=== PATIENT | female | born 1970 | race Caucasian/White ===

== ENCOUNTER 2016-05-18 08:20 | Emergency (ER) | payer MEDICARE, OTHER ==
[~2016-05-18] VITALS: Ht 167.6 cm; Wt 170.1 kg
[2016-05-18 08:45] VITALS: BP 174/86
[2016-05-18] MEDS ORDERED: OXYCODONE/APAP 10/325 TABLET. PO ONE (09:45)
--- NOTE | 2016-05-18 09:57 | PHYS DOC ---
Past Medical History Past Medical History: CVA, Diabetes-Type II, High Cholesterol, Hypertension, [place] Additional Past Medical Histor: chronic L side numbness, chronic back and knee pain Past Surgical History: Cholecystectomy, , Hysterectomy, Tonsillectomy , Tubal ligation Alcohol Use: None Drug Use: None Adult General Chief Complaint Chief Complaint: LOWER BACK PAIN OR INJURY [facility] HPI Patient is a 45 year old male presents emergency department stating that she is having right lower back pain that goes into her buttocks area. She states that she went to get up off the toilet on Monday and developed the pain. She states that she had been taken her oxycodone for the pain and discomfort although ran out of it on Monday night. Patient does states she has a history of chronic back pain. She denies any falls traumas or injury to her back. She denies any loss of bowel or bladder. She states that she normally has numbness and tingling into her leg so she is unable to tell if this is increased or not. Patient does ambulate with a cane although when I went into the room she was ambulating without the cane with a steady gait. Review of Systems Review of Systems Constitutional: Denies fever or chills [] Eyes: Denies change in visual acuity, redness, or eye pain [] HENT: Denies nasal congestion or sore throat [] Respiratory: Denies cough or shortness of breath [] Cardiovascular: No additional information not addressed in HPI [] GI: Denies abdominal pain, nausea, vomiting, bloody stools or diarrhea [] : Denies dysuria or hematuria [] Musculoskeletal: lower back pain with radiation into the right buttock. Denies joint pain [] Integument: Denies rash or skin lesions [] Neurologic: Denies headache, focal weakness or sensory changes [] Current Medications Current Medications Current Medications Medications (Trade) Dose Ordered Sig/Myrna Start Time Stop Time Status Last Admin Dose Admin Oxycodone/ Acetaminophen (Percocet 10/325) 1 tab 1X ONCE 05/18/16 09:45 05/18/16 09:46 DC 05/18/16 09:34 1 TAB Allergies Allergies Allergies Coded Allergies Type Severity Reaction Last Updated Verified No Known Drug Allergies 05/18/16 No Physical Exam Physical Exam Constitutional: Well developed, well nourished, no acute distress, non-toxic appearance. [] HENT: Normocephalic, atraumatic, bilateral external ears normal, oropharynx moist, no oral exudates, nose normal. [] Eyes: PERRLA, EOMI, conjunctiva normal, no discharge. [] Neck: Normal range of motion, no tenderness, supple, no stridor. [] Cardiovascular:Heart rate regular rhythm, no murmur [] Lungs & Thorax: Bilateral breath sounds clear to auscultation [] Skin: Warm, dry, no erythema, no rash. [] Back: Lumbar spine tenderness noted with no step-offs, no deformities and no crepitus noted Extremities: No tenderness, no cyanosis, no clubbing, ROM intact, no edema. [] Neurologic: Alert and oriented X 3, normal motor function, normal sensory function, no focal deficits noted. [] Psychologic: Affect normal, judgement normal, mood normal. [] Current Patient Data Vital Signs Vital Signs Date Time Temp Pulse Resp B/P Pulse Ox O2 Delivery O2 Flow Rate FiO2 05/18/16 08:45 97.7 90 22 174/86 94 Room Air 97.7 EKG EKG [] Radiology/Procedures Radiology/Procedures [] [facility] [address] [place], [place] [id number] IMAGING REPORT Signed PATIENT: VI JIMENES ACCOUNT: [id number] : 1970 LOCATION: ER AGE: 45 SEX: F EXAM STATUS: PRE ER ORD. PHYSICIAN: INNA CID NP REASON: spine tenderness with lower extremity numbness hx stroke PROCEDURE: LUMBAR SPINE 2-3V Lumbar spine, 3 views, 05/18/2016: History: Spine tenderness, lower extremity numbness Comparison is made to a study from 07/02/2008. The lumbar vertebral heights are well-maintained. There appear to be 6 lumbar type vertebral bodies. The lowest visible disc space will be considered to be L6-S1 for consistency with the prior report. There is a grade 1 spondylolisthesis at L6-S1, also evident on the previous study. There is underlying facet joint arthropathy and probable spondylolysis. There is severe disc space narrowing and marginal spurring at L6-S1. The other intervertebral disc spaces are well preserved. The paraspinous soft tissues are unremarkable. IMPRESSION: 1. Chronic grade 1 spondylolisthesis at the lumbosacral junction with severe associated degenerative disc disease at that level. 2. No acute lumbar spine abnormality is detected. DICTATED and SIGNED BY: MILEY DEL TORO MD DATE: 05/18/16 0952 CC: INNA CID COATING AND EMBOSSING UNIT OPERATOR; RYAN CARROLL MD ~ Course & Med Decision Making Course & Med Decision Making Pertinent Labs and Imaging studies reviewed. (See chart for details) X-rays as negative for any abnormalities. Provide patient with some oxycodone for the next few days until she can get into see her primary care physician on Monday. Recommended activity as tolerated. Signs and symptoms to return back to emergency department as been provided. Patient agrees with discharge instructions treatment regimens and follow-up recommendations. [] Dragon Disclaimer Dragon Disclaimer This electronic medical record was generated, in whole or in part, using a voice recognition dictation system. Departure Departure Impression: Primary Impression: Chronic lower back pain Disposition: HOME, SELF-CARE Condition: STABLE Referrals: RYAN CARROLL MD (PCP) Patient Instructions: Back Pain, Adult, [id number] Additional Instructions: Activity as tolerated. Medications as prescribed. Oxycodone will cause drowsiness do not take any be alert and oriented. Follow-up through primary care physician in the next 2-3 days. Return back to emergency prior signs symptoms of become worse. Scripts Oxycodone/Apap 10-325 (Percocet 10-325 Mg Tablet)1 Each Tablet1 Tab PO PRN Q6HRS PRN PAIN #8 TAB Ref 0 Prov:INNA CID NP 05/18/16 INNA CID NP May 18, 2016 09:57
[2016-05-18] MEDS ORDERED: OXYC-250 PO (10:04)
== END 2016-05-18 10:03 | disposition home or self-care (01) ==
LOC: ER 08:20
DX: G89.29 Other chronic pain (principal); M54.5 Low back pain; Z86.73 Personal history of transient ischemic attack (TIA), and cerebral infarction without residual deficits; E11.9 Type 2 diabetes mellitus without complications; I10 Essential (primary) hypertension; I25.2 Old myocardial infarction; E78.00 Pure hypercholesterolemia, unspecified
CPT/HCPCS: 72100; 99284

== ENCOUNTER 2017-05-04 14:30 | Emergency (ER) | payer MEDICARE, OTHER ==
[2017-05-04 16:35] LABS: INFLUENZA A PATIENT NEGATIVE (NEGATIVE); INFLUENZA B PATIENT NEGATIVE (NEGATIVE); OBC FLU VALID
== END 2017-05-04 17:04 | disposition home or self-care (01) ==
LOC: ER 14:30
DX: B34.9 Viral infection, unspecified (principal); E11.9 Type 2 diabetes mellitus without complications; E78.00 Pure hypercholesterolemia, unspecified; I10 Essential (primary) hypertension; Z86.73 Personal history of transient ischemic attack (TIA), and cerebral infarction without residual deficits
CPT/HCPCS: 87804; 87804-59; 99284

== ENCOUNTER 2020-03-22 12:51 | Emergency (ER) | payer MEDICARE ==
[~2020-03-22] VITALS: Ht 167.6 cm; Wt 165.0 kg
[~2020-03-22 12:51] MED LIST: OSEL75CA PO; OXYC1TAB22 PO
--- NOTE | 2020-03-22 17:46 | ED.ADGEN ---
Past Medical History Past Medical History: CVA, Diabetes-Type II, High Cholesterol, Hypertension, [place] Additional Past Medical Histor: chronic L side numbness, chronic back and knee pain Past Surgical History: Cholecystectomy, , Hysterectomy, Tonsillectomy, Tubal ligation Smoking Status: Current Every Day Smoker Alcohol Use: None Drug Use: None General Adult EDM: Chief Complaint: SHORTNESS OF BREATH HPI: HPI: Patient is a 49 year old female who presents to the emergency room with complaints of frequent headaches, chills, increased shortness of breath, and 3 episodes of diarrhea over the last week. Patient states that she is always short of breath she has a history of COPD and wears 3 L of oxygen via nasal cannula continuously. Patient reports that her shortness of breath has actually been increased over the last 3 weeks. She states she saw her primary care doctor 2 weeks ago for some swelling and redness of her abdomen, she received 2 penicillin shots during those visits but cannot recall what she was being treated for.. Patient denies any known exposure to COVID-19. She denies any fever, anosmia, hypogeusia, cough, nausea, vomiting, abdominal pain, chest pain, palpitations, dizziness, vision changes, or bloody stools. She denies any numbness, tingling, or weakness. Patient currently rates her headache a 10 out of 10 on the pain scale, states it is a pounding sensation located in her forehead, she denies any alleviating or exacerbating factors. Review of Systems: Review of Systems: Complete ROS is negative unless otherwise noted in HPI. Current Medications: Current Medications Medications (Trade) Dose Ordered Sig/Myrna Start Time Stop Time Status Last Admin Dose Admin Diphenhydramine HCl (Benadryl) 25 mg 1X ONCE 03/22/20 18:30 03/22/20 18:31 DC 03/22/20 18:49 25 MG Info (CONTRAST GIVEN -- Rx MONITORING) 1 each PRN DAILY PRN 03/22/20 20:00 03/22/20 21:34 DC Iohexol (Omnipaque 350 Mg/ml) 100 ml 1X ONCE 03/22/20 20:00 03/22/20 20:01 DC 03/22/20 20:17 100 ML Ketorolac Tromethamine (Toradol 15mg Vial) 15 mg 1X ONCE 03/22/20 18:30 03/22/20 18:31 DC 03/22/20 18:49 15 MG Labetalol HCl (Normodyne Iv Push) 20 mg 1X ONCE 03/22/20 20:00 03/22/20 20:01 DC 03/22/20 19:56 20 MG Prochlorperazine Edisylate (Compazine) 10 mg 1X ONCE 03/22/20 18:30 03/22/20 18:31 DC 03/22/20 18:49 10 MG Sodium Chloride 1,000 ml @ 1,000 mls/hr 1X ONCE 03/22/20 18:30 03/22/20 19:29 DC 03/22/20 18:48 1,000 MLS/HR Allergies: Allergies: Allergies Coded Allergies Type Severity Reaction Last Updated Verified No Known Drug Allergies 05/18/16 No Physical Exam: PE: See Above Constitutional: Well developed, well nourished, no acute distress, morbidly obese HENT: Normocephalic, atraumatic, bilateral external ears normal, nose normal. [] Eyes: PERRLA, EOMI, conjunctiva normal, no discharge. [] Neck: Normal range of motion, no stridor. [] Cardiovascular:Heart rate regular rhythm Lungs & Thorax: Respirations even and unlabored, no retractions, no respiratory distress, wearing O2 at 3 L via nasal cannula oxygen saturation 96% currently, speaking full sentences Abdomen: soft, no tenderness, large panniculus with erythematous, hyperpigmented, and indurated skin, peau dorange appearance inferiorly. . [] Skin: Warm, dry, no erythema, no rash. [] Back: No tenderness, no CVA tenderness. [] Extremities: No tenderness, no cyanosis, ROM intact, 2 + edema BLE with evidence of PVD bilaterally- chronic per pt. Neurologic: Alert and oriented X 3, normal sensory function, no focal deficits noted. [] Psychologic: Affect normal, judgement normal, mood normal. [] Current Patient Data: Labs: Laboratory Tests Test 03/22/20 18:07 White Blood Count 10.2 x10^3/uL (4.0-11.0) Red Blood Count 4.37 x10^6/uL (3.50-5.40) Hemoglobin 13.5 g/dL (12.0-15.5) Hematocrit 41.2 % (36.0-47.0) Mean Corpuscular Volume 94 fL (79-100) Mean Corpuscular Hemoglobin 31 pg (25-35) Mean Corpuscular Hemoglobin Concent 33 g/dL (31-37) Red Cell Distribution Width 16.1 % (11.5-14.5) H Platelet Count 312 x10^3/uL (140-400) Neutrophils (%) (Auto) 74 % (31-73) H Lymphocytes (%) (Auto) 17 % (24-48) L Monocytes (%) (Auto) 7 % (0-9) Eosinophils (%) (Auto) 1 % (0-3) Basophils (%) (Auto) 1 % (0-3) Neutrophils # (Auto) 7.6 x10^3/uL (1.8-7.7) Lymphocytes # (Auto) 1.7 x10^3/uL (1.0-4.8) Monocytes # (Auto) 0.8 x10^3/uL (0.0-1.1) Eosinophils # (Auto) 0.1 x10^3/uL (0.0-0.7) Basophils # (Auto) 0.1 x10^3/uL (0.0-0.2) D-Dimer (Pat) 1.20 ug/mlFEU (0.00-0.50) H Sodium Level 140 mmol/L (136-145) Potassium Level 4.5 mmol/L (3.5-5.1) Chloride Level 100 mmol/L (98-107) Carbon Dioxide Level 39 mmol/L (21-32) H Anion Gap 1 (6-14) L Blood Urea Nitrogen 11 mg/dL (7-20) Creatinine 0.7 mg/dL (0.6-1.0) Estimated GFR (Cockcroft-Gault) 88.9 BUN/Creatinine Ratio 16 (6-20) Glucose Level 173 mg/dL (70-99) H Calcium Level 8.8 mg/dL (8.5-10.1) Magnesium Level 2.3 mg/dL (1.8-2.4) Total Bilirubin 0.8 mg/dL (0.2-1.0) Aspartate Amino Transferase (AST) 11 U/L (15-37) L Alanine Aminotransferase (ALT) 24 U/L (14-59) Alkaline Phosphatase 126 U/L (46-116) H Creatine Kinase 23 U/L (26-192) L Creatine Kinase MB (Mass) < 0.5 ng/mL (0.0-3.6) Creatine Kinase MB Relative Index % (0-4) Troponin I Quantitative < 0.017 ng/mL (0.000-0.055) LB-Lic-T-Type Natriuretic Peptide 402 pg/mL (0-124) H Total Protein 8.4 g/dL (6.4-8.2) H Albumin 3.2 g/dL (3.4-5.0) L Albumin/Globulin Ratio 0.6 (1.0-1.7) L Laboratory Tests 03/22/20 18:07 Laboratory Tests 03/22/20 18:07 Vital Signs: Vital Signs Date Time Temp Pulse Resp B/P (MAP) Pulse Ox O2 Delivery O2 Flow Rate FiO2 03/22/20 21:19 98.4 75 26 170/80 (110) 99 Nasal Cannula 3.0 98.4 EKG: EK-sinus rhythm, rate 66, leftward axis, no STEMI, read by Dr. Flynn [] Heart Score: Risk Factors: Risk Factors: DM, Current or recent (<one month) smoker, HTN, HLP, family hist ory of CAD, obesity. Risk Scores: Score 0 - 3: 2.5% MACE over next 6 weeks - Discharge Home Score 4 - 6: 20.3% MACE over next 6 weeks - Admit for Clinical Observation Score 7 - 10: 72.7% MACE over next 6 weeks - Early Invasive Strategies Radiology/Procedures: Radiology/Procedures: PROCEDURE: CHEST AP ONLY EXAM: CHEST ONE VIEW. HISTORY: Shortness of breath, COVID-19 exposure. COMPARISON: None. FINDINGS: A frontal view of the chest is obtained. There are mild interstitial opacities in the left perihilar region in both bases. There is no pneumothorax or pleural effusion. The heart is moderately enlarged. IMPRESSION: 1. Mild basilar atelectasis versus mild atypical infiltrates. 2. Moderate cardiomegaly.[] Course & Med Decision Making: Course & Med Decision Making Pertinent Labs and Imaging studies reviewed. (See chart for details) 2100-I went into the room to reassess the patient's pain level and discussed the lab and x-ray findings. The patient states her headache is better she is feeling better and she would like to go home she refuses admission to the hospital. I advised her that her COVID-19 test is not available yet she will need to follow quarantine instructions that I provide her with. Patient was hypertensive in the ER she states that she is due for her nightly dose of Coreg. I told the patient that she needs to take her Coreg as soon as she returns home. Encouraged her to follow-up with her primary care doctor in 1 to 2 days, return to the ER if symptoms worsen or fever develop. Patient verbalized an understanding of home care, medications, follow-up, and return to ED instructions and was in agreement with the plan of care. COVID-19 CRITERIA: The patient was evaluated during the global COVID-19 pandemic, and that diagnosis was suspected/considered upon their initial presentation. Their evaluation, treatment and testing was consistent with c adryrent guidelines for patients who present with complaints or symptoms that may be related to COVID-19. [] Dragon Disclaimer: Dragon Disclaimer: This electronic medical record was generated, in whole or in part, using a voice recognition dictation system. Departure Departure Impression: Primary Impression: Person under investigation for COVID-19 Additional Impressions: Headache Dyspnea Hypertension Disposition: 01 DC HOME SELF CARE/HOMELESS Condition: STABLE Referrals: RYAN CARROLL MD (PCP) Patient Instructions: General Headache Without Cause, [id number], Hypertension, Xdby-mu-Bofa, Shortness of Breath, [id number]-pd-[id number] Additional Instructions: Take your blood pressure medication as prescribed as soon as you get home. You may take Tylenol or ibuprofen as needed for headache. Follow-up with your [facility] doctor in the next 1 to 2 days, return to the ER if your symptoms worsen. Please follow the following quarantine instructions: You have been tested for or diagnosed with COVID-19. It is an infection caused by a new type of coronavirus. COVID-19 will cause cold-like or mild flu symptoms in most. It can cause more severe symptoms like problems breathing in some. There is no treatment for COVID-19. The body will clear the infection over time. Self-care will help to ease discomfort. Steps to Take: Self-Care Rest as needed. Healthy habits may help you feel better. Steps include: Choose healthy foods including fruits and vegetables. Drink water throughout the day. Get plenty of sleep each night. If you smoke, try to quit. It may ease breathing. Avoid alcohol. Keep Others Healthy The virus can spread to others. Droplets are released every time you sneeze or cough. The droplets can get into the mouth, nose, or eyes of people near you and lead to infection. To lower the chances of spreading COVID-19 to others: Stay at home until your doctor has said it is safe to leave. If you tested positive this will mean staying isolated until both of the following are true: At least 7 days have passed since the start of illness. You are free of fever for at least 72 hours without the use of medicine. During this time: - Avoid public areas, events, or transportation. Do not return to work or school until your doctor has said it is safe to do so. - Call ahead if you need to go to a medical center. Let them know you may have COVID-19. It will help them guide you where to go. They may also ask you to wear a facemask when you come to the office. - If you call for emergency medical services, let them know you may have COVID- 19. While at home: - Try to avoid close contact with others. Stay about 6 feet away. - If possible, spend most of your time in a separate room from others. - Use a face mask if you will be in close contact with others such as sharing a room or vehicle. - Have someone wipe down common surfaces in the home. Use household chairman & chief executive officer every day on areas like doorknobs, counters, or sinks. - Cough or sneeze into a tissue. Throw the tissue away right after use. If a tissue is not available, cough or sneeze into your elbow. - Wash your hands often. Wash them after sneezing or coughing. Use soap and water and wash for at least 20 seconds. Alcohol based hand telephone cleaner can be used if soap and water is not available. - Do not prepare food for others. Avoid sharing personal items like forks, spoons, or toothbrushes. - Avoid close contact with pets while you are sick. There is no evidence of the virus passing to pets. This is a safety step until more is known about this virus. Isolation can be frustrating. Social interaction can help. Keep in touch with friends and family through phone and tech options. You can still interact with others in your home, just keep a safe distance of about 6 feet. Follow-up: Your doctors office will check in with you to see if there are any changes in your health. You may be asked to keep track of symptoms to share with them. They will also let you know when you are clear to be in public again. Problems to Look Out For: Contact your doctor if your recovery is not going as you expect. Get emergency care if you have problems such as: - Trouble breathing - Nonstop chest pain or pressure - Changes in awareness, confusion, or problems waking - Lips or face have bluish color - Worsening of symptoms If you think you have an emergency, call for emergency medical services right away. As taken from [facility] [place] [employer] COVID-19 Assessment: COVID-19 Patient Risks: Age 65 or older: No Sign of co-morbidity: Yes Exp to person + for COVID: No Exp to PUI: No Travel from affected area: No Lower respiratory symptoms: Yes Fever: No PPE Use: Full PPE with N95 mask or PAPR: Yes Problem Qualifiers Additional Impressions: Headache Headache type: unspecified Headache chronicity pattern: episodic headache Intractability: not intractable Qualified Codes: R51.9 - Headache, unspecified Dyspnea Dyspnea type: shortness of breath Qualified Codes: R06.02 - Shortness of breath Hypertension Hypertension type: essential hypertension Qualified Codes: I10 - Essential (primary) hypertension JESU ARNOLD APRN Mar 22, 2020 17:46
--- NOTE | 2020-03-22 18:18 | RAD ---
EXAM: CHEST ONE VIEW. HISTORY: Shortness of breath, COVID-19 exposure. COMPARISON: None. FINDINGS: A frontal view of the chest is obtained. There are mild interstitial opacities in the left perihilar region in both bases. There is no pneumot horax or pleural effusion. The heart is moderately enlarged. IMPRESSION: 1. Mild basilar atelectasis versus mild atypical infiltrates. 2. Moderate cardiomegaly. Electronically signed by: Kanika Ureña MD (03/22/2020 6:15 PM) [facility]
[2020-03-22 18:19] LABS: BASO # 0.1 x10^3/uL (0.0-0.2); BASO % 1 % (0-3); EOS # 0.1 x10^3/uL (0.0-0.7); EOS % 1 % (0-3); HEMATOCRIT 41.2 % (36.0-47.0); HEMOGLOBIN 13.5 g/dL (12.0-15.5); LYMPH # 1.7 x10^3/uL (1.0-4.8); LYMPH % 17 % (24-48); MEAN CORPUSCULAR HEMOGLOBIN 31 pg (25-35); MEAN CORPUSCULAR HGB CONC 33 g/dL (31-37); MEAN CORPUSCULAR VOLUME 94 fL (79-100); MONO # 0.8 x10^3/uL (0.0-1.1); MONO % 7 % (0-9); NEUT # 7.6 x10^3/uL (1.8-7.7); NEUT % 74 % (31-73); PLATELET COUNT 312 x10^3/uL (140-400); RED BLOOD COUNT 4.37 x10^6/uL (3.50-5.40); RED CELL DISTRIBUTION WIDTH 16.1 % (11.5-14.5); WHITE BLOOD COUNT 10.2 x10^3/uL (4.0-11.0)
[2020-03-22 18:29] LABS: CALCIUM 8.8 mg/dL (8.5-10.1); CREATININE 0.7 mg/dL (0.6-1.0); GFR 88.9; POTASSIUM 4.5 mmol/L (3.5-5.1)
[2020-03-22] MEDS ORDERED: KETOROLAC 15 MG/ML VIAL. IVP ONE (18:30)
[2020-03-22] MEDS ORDERED: IV NORMAL SALINE 1000ML BAG 1,000 ML IV ONE (18:30)
[2020-03-22] MEDS ORDERED: PROCHLORPERAZINE 10 MG/2 ML VIAL. IV ONE (18:30)
[2020-03-22] MEDS ORDERED: diphenhydrAMINE 50 MG/ML VIAL IVP ONE (18:30)
[2020-03-22 18:36] LABS: ALBUMIN 3.2 g/dL (3.4-5.0); ALBUMIN/GLOBULIN RATIO 0.6 (1.0-1.7); MAGNESIUM 2.3 mg/dL (1.8-2.4); TOTAL BILIRUBIN 0.8 mg/dL (0.2-1.0); TOTAL PROTEIN 8.4 g/dL (6.4-8.2)
[2020-03-22 18:46] LABS: CREATINE KINASE 23 U/L (26-192)
--- NOTE | 2020-03-22 19:04 | EKG ---
[facility] [address] [place] [address] Test Date: 2020-03-22 Test Time: 18:17:37 Pat Name: VI JIMENES Department: Room: Gender: F Produce Sorter: : 1970 Requested By: JESU ARNOLD Order Number: [id number] Reading MD: Jacob Noel Measurements Intervals [place] Rate: 66 P: 37 [place]: 156 QRS: -1 QRSD: 92 T: 47 QT: 446 QTc: 469 Interpretive Statements SINUS RHYTHM LEFTWARD AXIS Electronically Signed On 03-24-2020 13:43:38 OIL REFINERY PROCESS TECHNICIAN by Jacob Noel
[2020-03-22] MEDS ORDERED: CONTRAST GIVEN. MC PRN (20:00)
[2020-03-22] MEDS ORDERED: IOHEXOL 350 MG/ML 100 ML VIAL. IV ONE (20:00)
[2020-03-22] MEDS ORDERED: LABETALOL 20 MG/4 ML DISP.SYRIN. IVP ONE (20:00)
--- NOTE | 2020-03-22 20:31 | RAD ---
Exam: CT of chest with contrast INDICATION: Short of air, elevated d-dimer TECHNIQUE: Sequential axial images through the chest obtained following the administration of 100 mL of Omni 350 IV contrast. Sagittal and coronal reformatted images were reconstructed from the axial da ta and reviewed. 3-D reformatted images were reconstructed from the axial data and reviewed. Comparisons: Chest x-ray same day FINDINGS: Visualized portions of the thyroid are unremarkable. No enlarged mediastinal lymph nodes are identifi ed. Heart size is normal. No pericardial effusion. Thoracic aorta has normal course and caliber. Pulmonar y artery is enlarged with main pulmonary artery measuring 5.4 cm in diameter. No pulmonary was identi fied within the main, lobar or segmental pulmonary airway is are patent. No consolidation or pneumoth orax. Airways are patent. No consolidation or pneumothorax. No suspicious lung nodules. No pleural effusion or thickening. Visualized upper abdomen is unremarkable. No suspicious osseous lesions or acute fractures. IMPRESSION: 1. No pulmonary embolus identified within the main, lobar or segmental pulmonary arteries. 2. Pulmonary arterial enlargement as described above. Correlate for pulmonary arterial hypertension. Exposure: One or more of the following in the visualized dose reduction techniques were utilized for this examination: 1. Automated exposure control 2. Adjustment of the MA and/or KV according to patient size 3. Use of iterative of reconstructive technique Electronically signed by: Aye Martinez MD (03/22/2020 8:28 PM) [facility]
[2020-03-22 21:19] VITALS: BP 170/80
--- NOTE | 2020-03-25 14:54 | NUR ---
IP: Attempted to contact pt concerning COVID results. No answer. Voice mailbox full, could not leave a message.
--- NOTE | 2020-03-25 15:11 | NUR ---
IP: Pt called back and I informed her of the negative COVID results. Pt verbalized understanding.
== END 2020-03-22 21:20 | disposition home or self-care (01) ==
LOC: ER 12:51
DX: R51.9 Headache, unspecified (principal); Z20.828 Contact with and (suspected) exposure to other viral communicable diseases; R06.02 Shortness of breath; R06.00 Dyspnea, unspecified; R19.7 Diarrhea, unspecified; I10 Essential (primary) hypertension; E11.9 Type 2 diabetes mellitus without complications; E78.00 Pure hypercholesterolemia, unspecified; I25.2 Old myocardial infarction; F17.200 Nicotine dependence, unspecified, uncomplicated; Z90.49 Acquired absence of other specified parts of digestive tract; Z90.710 Acquired absence of both cervix and uterus; Z98.890 Other specified postprocedural states; Z98.51 Tubal ligation status
CPT/HCPCS: 36415; 71045; 71275; 80053; 82553; 83735; 83880; 84484; 85025; 85379; 93005; 96361; 96374; 96375; 99285; C9803; J0780; J1200; J1885; J3490; J7030; Q9967; U0003